=== PATIENT | female | born 1995 | race African-American/Black ===

== ENCOUNTER 2017-02-05 14:41 | Emergency (ER) | payer OTHER ==
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
[2017-02-05 15:38] LABS: APPEARANCE,URINE SLIGHTLY-CLOUDY; BILIRUBIN,URINE NEGATIVE (NEGATIVE); COLOR,URINE YELLOW; GLUCOSE, URINE NEGATIVE (NEGATIVE); KETONES,URINE NEGATIVE (NEGATIVE); LEUKOCYTE ESTERASE,URINE TRACE (NEGATIVE); NITRITE,URINE NEGATIVE (NEGATIVE); PROTEIN,URINE 30 mg/dL (NEGATIVE); URINE SPECIFIC GRAVITY 1.017; UROBILINOGEN,URINE NEGATIVE mg/dL (<2.0)
[2017-02-05 16:20] LABS: T.VAGINALIS (WET MOUNT) NO TRICHOMONAS SEEN; WBCS (WET MOUNT) RARE WBCS SEEN; YEAST (WET MOUNT) NO YEAST SEEN
[2017-02-05 16:21] LABS: BACTERIA (WET MOUNT) 3+ BACTERIA SEEN; EPITHELIALS (WET MOUNT) 3+ EPITHELIALS SEEN
[2017-02-05 16:58] VITALS: BP 119/66
[2017-02-05 17:46] LABS: CHLAM PCR NOT DETECTED (NOT DETECT); GON PCR NOT DETECTED (NOT DETECT)
== END 2017-02-05 16:58 | disposition home or self-care (01) ==
LOC: ER 14:41
DX: S30.1XXA Contusion of abdominal wall, initial encounter (principal); O26.892 Other specified pregnancy related conditions, second trimester; R10.9 Unspecified abdominal pain; Z3A.16 16 weeks gestation of pregnancy; Y04.0XXA Assault by unarmed brawl or fight, initial encounter
CPT/HCPCS: 81001; 87210; 87491; 87591; 99284